=== PATIENT | female | born 1950 | race African-American/Black ===

== ENCOUNTER 2017-01-25 14:31 | Inpatient (IN) | payer MEDICARE, MEDICAID ==
[~2017-01-25] VITALS: Ht 167.6 cm; Wt 96.1 kg
[2017-01-25] MEDS ORDERED: SODIUM CHLORIDE 0.9% 1,000 ML IV ONE (15:30)
[2017-01-25 16:14] LABS: Basophils # (auto) 0.1 uL; Basophils % (auto) 0.6 % (0.0-2.0); CONDITION Y; Eosinophils # (auto) 0.5 uL; Eosinophils % (auto) 5.4 % (0.0-7.0); Hematocrit 36.6 % (36.0-46.0); Hemoglobin 12.1 g/dL (12.2-16.2); Lymphocytes # (auto) 1.8 uL; Lymphocytes % (auto) 19.9 % (10.0-50.0); Mean Corpuscular Hemoglobin 29.2 pg (28.0-32.0); Mean Corpuscular Hgb Conc. 33.1 g/dL (32.0-36.0); Mean Corpuscular Volume 88.2 fL (80.0-100.0); Mean Platelet Volume 7.8 fL (7.4-10.4); Monocytes # (auto) 0.5 uL; Monocytes % (auto) 5.8 % (0.0-12.0); Neutrophils # (auto) 6.2 uL; Neutrophils % (auto) 68.3 % (37.0-80.0); Platelet Count (auto) 262 10^3/uL (140-450); Red Cell Distribution Width 12.9 % (11.6-16.0)
[2017-01-25] MEDS ORDERED: MORPHINE SULF INJ 2 MG/ML SYRINGE 1ML IV ONE (16:30)
[2017-01-25] MEDS ORDERED: ONDANSETRON HCL 4 MG/2 ML VIAL IV ONE (16:30)
[2017-01-25 16:40] LABS: Albumin 3.4 g/dL (3.4-5.0); Alkaline Phosphatase 103 U/L (45-117); Anion Gap 6 (5-15); Aspartate Aminotransferase 9 U/L (15-37); BUN/Creatinine Ratio 9.8; Bilirubin, Total 0.2 mg/dL (0.2-1.0); Blood Urea Nitrogen 14 mg/dL (7-18); Calcium 8.4 mg/dL (8.5-10.1); Carbon Dioxide 29 mmol/L (21-32); Chloride 106 mmol/L (98-107); GFR African American 47 mL/min; GFR Non-African American 39 mL/min; Glucose 105 mg/dL (74-106); Potassium 3.5 mmol/L (3.5-5.1); Sodium 141 mmol/L (136-145)
[2017-01-25 16:45] LABS: INR 0.95 (0.9-1.15); Partial Thromboplastin Time 28.2 sec (22.64-33.71); Prothrombin Time 10.4 sec (9.37-12.3)
[2017-01-25] MEDS ORDERED: SODIUM CHLORIDE 0.9% 1,000 ML IV SCH (17:09)
[2017-01-25] MEDS ORDERED: LACTULOSE 20Gm/30ML SOLN PO PRN (17:15)
[2017-01-25] MEDS ORDERED: NITROGLYCERIN 0.4 MG SL TAB SL PRN (17:15)
[2017-01-25] MEDS ORDERED: HYDROcodone-ACET 5/325MG TAB PO PRN (17:15)
[2017-01-25] MEDS ORDERED: PROMETHAZINE HCL 25 MG/ML 1ML IV PRN (17:15)
[2017-01-25] MEDS ORDERED: DEXTROSE (50%) 50ML SYRG IV PRN (17:15)
[2017-01-25] MEDS ORDERED: LORazepam 0.5 MG TAB PO PRN (17:15)
[2017-01-25] MEDS ORDERED: MORPHINE SULF INJ 2 MG/ML SYRINGE 1ML IV PRN (17:15)
[2017-01-25] MEDS ORDERED: ASPirin 81 mg TAB PO ONE (17:30)
[2017-01-25] MEDS ORDERED: PANTOPRAZOLE 40 MG TAB PO ONE (17:30)
[2017-01-25] MEDS ORDERED: ENOXAPARIN SOD 40 MG/0.4 ML SYRINGE SC ONE (17:30)
[2017-01-25 17:35] LABS: Cholesterol 166 mg/dL (< 200); HDL Cholesterol 39 mg/dL (40-59); LDL Cholesterol 112 mg/dL (< 100); Triglycerides 150 mg/dL (< 150)
[2017-01-25] MEDS ORDERED: ALBUTEROL SULF 2.5 MG/0.5ML(0.5%) NEB SOLN NEB PRN (18:15)
[2017-01-25] MEDS ORDERED: CARISOPRODOL 350 MG TAB PO PRN (18:15)
[2017-01-25] MEDS: DOXYCYCLINE HYC 100MG/250ML 250 ML IV SCH (18:27)
[2017-01-25] MEDS: InsuLIN REG 1unit/0.01ml Soln (100units/ml) SC SCH (21:11)
[2017-01-25] MEDS: ACCU-CHEK COMFORT CURVE STRIP VI SCH (21:11)
[2017-01-25] MEDS: SODIUM CHLORIDE 0.9% 1,000 ML IV SCH (21:12)
[2017-01-25] MEDS: MORPHINE SULF INJ 2 MG/ML SYRINGE 1ML IV PRN (21:13)
[2017-01-25 21:40] LABS: Temperature: 23.3 C (20.0-25.0)
[2017-01-25 22:00] VITALS: BP 111/48
[2017-01-25] MEDS ORDERED: ATORVASTATIN 20 MG TAB PO SCH (22:00)
[2017-01-26] MEDS: ALBUTEROL SULF 2.5 MG/0.5ML(0.5%) NEB SOLN NEB SCH ×4 (01:03→18:21)
[2017-01-26 01:12] VITALS: BP 129/59
[2017-01-26] MEDS: MORPHINE SULF INJ 2 MG/ML SYRINGE 1ML IV PRN ×2 (01:37→06:41)
[2017-01-26 05:00] VITALS: BP 126/61
[2017-01-26] MEDS: InsuLIN REG 1unit/0.01ml Soln (100units/ml) SC SCH ×4 (05:41→21:32)
[2017-01-26] MEDS: ACCU-CHEK COMFORT CURVE STRIP VI SCH ×4 (05:41→21:32)
[2017-01-26] MEDS: DOXYCYCLINE HYC 100MG/250ML 250 ML IV SCH (06:03)
[2017-01-26 07:03] LABS: Albumin 3.1 g/dL (3.4-5.0); BUN/Creatinine Ratio 10.7; Bilirubin, Total 0.4 mg/dL (0.2-1.0); Calcium 8.8 mg/dL (8.5-10.1); Potassium 3.7 mmol/L (3.5-5.1); Total Protein 6.3 g/dL (6.4-8.2)
[2017-01-26] MEDS: SODIUM CHLORIDE 0.9% 1,000 ML IV SCH ×2 (08:00→18:13)
[2017-01-26 09:00] VITALS: BP 110/53
[2017-01-26] MEDS ORDERED: ASPirin 81 mg TAB PO SCH (10:00)
[2017-01-26] MEDS ORDERED: ENOXAPARIN SOD 40 MG/0.4 ML SYRINGE SC SCH (10:00)
[2017-01-26 10:12] LABS: Urine Bilirubin Negative (Negative); Urine Blood Negative /uL (Negative); Urine Color Yellow (Yellow); Urine Glucose Normal (Normal); Urine Hyaline Cast FEW /lpf (0 - 2); Urine Ketone Negative (Negative); Urine Mucus FEW (None Seen); Urine Nitrite Negative (Negative); Urine RBC <1 /hpf (0 - 4); Urine Squamous Epithelial Cell FEW /hpf (<5); Urine Urobilinogen Normal (Negative); Urine pH 5.5 (5.0-8.0)
[2017-01-26] MEDS: PANTOPRAZOLE 40 MG TAB PO SCH (11:12)
[2017-01-26 13:00] VITALS: BP 142/64
[2017-01-26] MEDS ORDERED: cefTRIAXone 1GM/50ML D5W 50 ML IV ONE (13:00)
[2017-01-26 17:00] VITALS: BP 139/72
[2017-01-26] MEDS ORDERED: DONE10TA37 PO (17:52)
[2017-01-26] MEDS ORDERED: ALPR0.5T7 PO (17:52)
[2017-01-26] MEDS ORDERED: METF-370 PO (17:52)
[2017-01-26] MEDS ORDERED: AZI250T PO (17:52)
[2017-01-26] MEDS ORDERED: AMLO5TAB2 PO (17:52)
[2017-01-26] MEDS ORDERED: HCTZ25T PO (17:52)
[2017-01-26] MEDS ORDERED: SITA100T7 PO (17:52)
[2017-01-26] MEDS ORDERED: KEP500T PO (17:52)
[2017-01-26] MEDS ORDERED: CLON0.1T PO (17:52)
[2017-01-26] MEDS ORDERED: MEM5T PO (17:52)
[2017-01-26] MEDS ORDERED: DOCU100T15 PO (17:52)
[2017-01-26] MEDS ORDERED: FURO20TA3 PO (17:52)
[2017-01-26] MEDS ORDERED: ESCI20TA51 PO (17:52)
[2017-01-26] MEDS ORDERED: GLIP-116 PO (17:52)
[2017-01-26 22:00] VITALS: BP 137/70
[2017-01-26] MEDS: ATORVASTATIN 20 MG TAB PO SCH (22:04)
[2017-01-26] MEDS: MEMANTINE HCL 5 MG TAB PO SCH (22:04)
[2017-01-26] MEDS: LEVETIRACETAM 500 MG TAB PO SCH (22:04)
[2017-01-27] MEDS: ALBUTEROL SULF 2.5 MG/0.5ML(0.5%) NEB SOLN NEB SCH ×4 (02:00→18:38)
[2017-01-27] MEDS: SODIUM CHLORIDE 0.9% 1,000 ML IV SCH ×2 (04:00→14:00)
[2017-01-27 06:01] VITALS: BP 151/75
[2017-01-27] MEDS: ACCU-CHEK COMFORT CURVE STRIP VI SCH ×4 (06:21→22:00)
[2017-01-27] MEDS: InsuLIN REG 1unit/0.01ml Soln (100units/ml) SC SCH ×4 (06:22→22:00)
[2017-01-27 08:30] VITALS: BP 160/66
[2017-01-27] MEDS: cefTRIAXone 1GM/50ML D5W 50 ML IV SCH (08:38)
[2017-01-27] MEDS: MEMANTINE HCL 5 MG TAB PO SCH ×2 (10:06→22:00)
[2017-01-27] MEDS: LEVETIRACETAM 500 MG TAB PO SCH ×2 (10:06→22:00)
[2017-01-27] MEDS: ACETAMINOPHEN 500 MG TAB PO PRN (10:07)
[2017-01-27] MEDS: PANTOPRAZOLE 40 MG TAB PO SCH (10:07)
[2017-01-27 13:05] VITALS: BP 147/62
[2017-01-27 16:57] VITALS: BP 162/94
[2017-01-27] MEDS ORDERED: LORazepam 2MG/ML-1ML VIAL IV PRN (17:45)
[2017-01-27 22:00] VITALS: BP 173/82
[2017-01-27] MEDS: ATORVASTATIN 20 MG TAB PO SCH (22:00)
[2017-01-28] MEDS: SODIUM CHLORIDE 0.9% 1,000 ML IV SCH ×2 (00:02→10:00)
[2017-01-28] MEDS: TEMAZEPAM 15 MG CAP PO PRN ×2 (00:16→21:54)
[2017-01-28] MEDS: ALBUTEROL SULF 2.5 MG/0.5ML(0.5%) NEB SOLN NEB SCH ×4 (00:20→19:04)
[2017-01-28] MEDS: ACCU-CHEK COMFORT CURVE STRIP VI SCH ×4 (06:03→22:20)
[2017-01-28] MEDS: InsuLIN REG 1unit/0.01ml Soln (100units/ml) SC SCH ×4 (06:03→22:00)
[2017-01-28 09:00] VITALS: BP 159/76
[2017-01-28] MEDS: cefTRIAXone 1GM/50ML D5W 50 ML IV SCH (11:06)
[2017-01-28] MEDS: LEVETIRACETAM 500 MG TAB PO SCH ×2 (11:07→21:50)
[2017-01-28] MEDS: ACETAMINOPHEN 500 MG TAB PO PRN (11:07)
[2017-01-28] MEDS: PANTOPRAZOLE 40 MG TAB PO SCH (11:07)
[2017-01-28] MEDS: MEMANTINE HCL 5 MG TAB PO SCH ×2 (11:07→21:54)
[2017-01-28 13:30] VITALS: BP 157/85
[2017-01-28 17:00] VITALS: BP 148/79
[2017-01-28] MEDS: ATORVASTATIN 20 MG TAB PO SCH (21:51)
[2017-01-28] MEDS: NITROFURANTOIN (MONO) 100 mg CAP PO SCH (21:51)
[2017-01-28 22:00] VITALS: BP 147/68
[2017-01-29 02:33] VITALS: BP 147/68
[2017-01-29 05:16] VITALS: BP 152/101
[2017-01-29] MEDS: InsuLIN REG 1unit/0.01ml Soln (100units/ml) SC SCH ×4 (06:30→22:11)
[2017-01-29] MEDS: ACCU-CHEK COMFORT CURVE STRIP VI SCH ×4 (06:30→21:52)
[2017-01-29] MEDS: ALBUTEROL SULF 2.5 MG/0.5ML(0.5%) NEB SOLN NEB SCH ×4 (06:35→18:55)
[2017-01-29 07:18] LABS: BUN/Creatinine Ratio 11.5; Calcium 8.8 mg/dL (8.5-10.1); Potassium 3.5 mmol/L (3.5-5.1)
[2017-01-29 09:00] VITALS: BP 158/82
[2017-01-29] MEDS: NITROFURANTOIN (MONO) 100 mg CAP PO SCH ×2 (09:45→21:51)
[2017-01-29] MEDS: PANTOPRAZOLE 40 MG TAB PO SCH (09:46)
[2017-01-29] MEDS: cloNIDine HCL 0.1 MG TAB PO SCH ×2 (09:46→21:50)
[2017-01-29] MEDS: LEVETIRACETAM 500 MG TAB PO SCH ×2 (09:46→21:50)
[2017-01-29] MEDS: MEMANTINE HCL 5 MG TAB PO SCH ×2 (09:47→21:52)
[2017-01-29] MEDS ORDERED: amLODIPine BESYLATE 5 MG TAB PO SCH (10:00)
[2017-01-29] MEDS: ACETAMINOPHEN 500 MG TAB PO PRN ×2 (11:45→18:05)
[2017-01-29 13:00] VITALS: BP 149/68
[2017-01-29 16:46] VITALS: BP 128/63
[2017-01-29] MEDS: ATORVASTATIN 20 MG TAB PO SCH (21:51)
[2017-01-29] MEDS: TEMAZEPAM 15 MG CAP PO PRN (21:56)
[2017-01-29 23:57] VITALS: BP 127/55
[2017-01-30 06:08] VITALS: BP 120/68
[2017-01-30] MEDS: ALBUTEROL SULF 2.5 MG/0.5ML(0.5%) NEB SOLN NEB SCH ×2 (06:08)
[2017-01-30] MEDS: ACCU-CHEK COMFORT CURVE STRIP VI SCH (06:30)
[2017-01-30] MEDS: InsuLIN REG 1unit/0.01ml Soln (100units/ml) SC SCH (06:30)
[2017-01-30 09:58] VITALS: BP 128/71
== END 2017-01-30 10:40 | disposition home health service (06) | DRG 682 ==
LOC: EDBD 14:31 → ER 14:33 → TELE 14:34 → TELE-CENTR 19:40
PROVIDERS: ADMIT Internal Medicine; ATTEND Internal Medicine
DX: N17.9 Acute kidney failure, unspecified (principal); G93.41 Metabolic encephalopathy; N39.0 Urinary tract infection, site not specified; F03.90 Unspecified dementia, unspecified severity, without behavioral disturbance, psychotic disturbance, mood disturbance, and anxiety; I10 Essential (primary) hypertension; E11.9 Type 2 diabetes mellitus without complications; Z86.73 Personal history of transient ischemic attack (TIA), and cerebral infarction without residual deficits; Z90.710 Acquired absence of both cervix and uterus
CPT/HCPCS: 36415; 70450; 71010; 72125; 72141; 76536; 80048; 80053; 80061; 80307; 80320; 81001; 82550; 82607; 82746; 82962; 83036; 84443; 84484; 85025; 85610; 85652; 85730; 87081; 87086; 93886; 94640; 95819; 96372; 96375; 97116; 97163; 97530; J0696; J1815; J2405; J3490

== ENCOUNTER 2018-12-08 21:00 | Emergency (ER) | payer MEDICARE, MEDICAID ==
[~2018-12-08] VITALS: Ht 175.3 cm; Wt 117.9 kg
[~2018-12-08 21:00] MED LIST: ALPR0.5T7 PO; AMLO5TAB15 PO; AZIT250T8 PO; CLON0.1T PO; DOCU100T15 PO; DONE10TA40 PO; ESCI20TA51 PO; FURO20TA3 PO; GLIP10TA9 PO; HCTZ25T PO; KEP500T PO; MEM5T PO; METF-370 PO; SITA100T7 PO
[2018-12-08 21:56] LABS: Basophils # (auto) 0.1 uL; Eosinophils # (auto) 0.3 uL; Eosinophils % (auto) 5.1 % (0.0-7.0); Hematocrit 35.9 % (36.0-46.0); Hemoglobin 12.1 g/dL (12.2-16.2); Lymphocytes # (auto) 2.2 uL; Lymphocytes % (auto) 34.8 % (10.0-50.0); Mean Corpuscular Hemoglobin 29.9 pg (28.0-32.0); Mean Corpuscular Hgb Conc. 33.8 g/dL (32.0-36.0); Mean Corpuscular Volume 88.5 fL (80.0-100.0); Monocytes # (auto) 0.4 uL; Monocytes % (auto) 6.4 % (0.0-12.0); Neutrophils # (auto) 3.4 uL; Neutrophils % (auto) 52.7 % (37.0-80.0); Nucleated Red Blood Cells % 0.1 %; Platelet Count (auto) 236 10^3/uL (140-450); Red Blood Cells 4.05 10^6/uL (4.0-5.20); Red Cell Distribution Width 12.7 % (11.8-14.3); White Blood Cell 6.4 10^3/uL (4.4-10.8)
[2018-12-08 22:12] LABS: INR < 0.93 (0.9-1.15); Partial Thromboplastin Time 28.6 sec (23.64-32.05)
[2018-12-08 22:27] LABS: Chloride 108 mmol/L (98-107); Potassium 3.7 mmol/L (3.5-5.1); Sodium 138 mmol/L (136-145)
[2018-12-08 22:36] LABS: Alanine Aminotransferase 29 U/L (13-56); Albumin 3.3 g/dL (3.4-5.0); Alkaline Phosphatase 157 U/L (45-117); Anion Gap 6 (5-15); Aspartate Aminotransferase 28 U/L (15-37); BUN/Creatinine Ratio 12.8; Bilirubin, Total 0.1 mg/dL (0.2-1.0); Blood Alcohol < 3.0 mg/dL (0-5); Blood Urea Nitrogen 20 mg/dL (7-18); Calcium 7.9 mg/dL (8.5-10.1); Carbon Dioxide 24 mmol/L (21-32); GFR African American 43 mL/min; GFR Non-African American 35 mL/min; Glucose 148 mg/dL (74-106); Total Protein 6.6 g/dL (6.4-8.2)
[2018-12-09 00:17] VITALS: BP 158/56
== END 2018-12-09 00:19 | disposition home or self-care (01) ==
LOC: EDBD 21:00 → ER 21:02
DX: E86.0 Dehydration (principal); R41.82 Altered mental status, unspecified; F03.90 Unspecified dementia, unspecified severity, without behavioral disturbance, psychotic disturbance, mood disturbance, and anxiety; J44.9 Chronic obstructive pulmonary disease, unspecified; I10 Essential (primary) hypertension; Z86.73 Personal history of transient ischemic attack (TIA), and cerebral infarction without residual deficits; Z79.899 Other long term (current) drug therapy
CPT/HCPCS: 36415; 70450; 71045; 80053; 80320; 84484; 85025; 85610; 85730; 93005; 94761